=== PATIENT | female | born 1980 | race Hispanic/Latino ===

== ENCOUNTER 2017-01-08 09:23 | Emergency (ER) | payer OTHER ==
[~2017-01-08] VITALS: Ht 160 cm; Wt 55.0 kg
[~2017-01-08 09:23] MED LIST: APAP PO; BACTRIM DS1 TAB PO; CIPRO500 MG PO; DOCUSATE SOD100 MG PO; EQ LAXATIVE25 MG OR; FERROUS SULF325 M3 PO; FIORICE1 PO; Ferrous Sulfate OR; HYDROCODONE/ACE1 TA1 OR; IBUPROFEN200 MG PO; KEFLEX500 M1 PO; LORTAB5 PO; MUCINEX600 MG PO; NO HOME MEDS; ONDANSETRON4 MG OR; TESSALON PER100 MG PO; TYLENOL 500MG TAB PO; [UNRECOGNIZED DRUG - OTHER] PO; [UNRECOGNIZED DRUG - OTHER] PO
[2017-01-08] MEDS ORDERED: FLEXERIL PO (09:45)
[2017-01-08] MEDS ORDERED: MOTRIN800 MG PO (09:45)
[2017-01-08] MEDS ORDERED: TRAMADOL HYDROC50 MG PO (09:45)
[2017-01-08 10:19] VITALS: BP 131/81
== END 2017-01-08 10:19 | disposition home or self-care (01) | DRG 563 ==
LOC: ED 09:23
DX: S39.012A Strain of muscle, fascia and tendon of lower back, initial encounter (principal); X50.0XXA Overexertion from strenuous movement or load, initial encounter; Y93.F2 Activity, caregiving, lifting; Y92.129 Unspecified place in nursing home as the place of occurrence of the external cause